=== PATIENT | female | born 1995 ===

== ENCOUNTER → 2017-05-08 | Outpatient (CLI) | payer OTHER | LOC: LAB SHORT 16:41 | DX: L02.419 Cutaneous abscess of limb, unspecified (principal); L03.119 Cellulitis of unspecified part of limb | CPT/HCPCS: 87070; 87077; 87147; 87186; 87205 ==

== ENCOUNTER → 2017-12-26 | Outpatient (CLI) | payer OTHER | END | disposition home or self-care (01) | LOC: LAB 11:20 → LAB SHORT 11:20 | DX: L08.9 Local infection of the skin and subcutaneous tissue, unspecified (principal) | CPT/HCPCS: 87070; 87077; 87147; 87186; 87205 ==